=== PATIENT | female | born 1950 | race Caucasian/White ===

== ENCOUNTER 2019-08-11 16:37 | Emergency (ER) | payer OTHER, SELFPAY ==
[2019-08-11 16:40] VITALS: BP 152/91; PULSE 108; RESP 15; TEMP 36.8; O2SAT 98
--- NOTE | 2019-08-11 16:47 | ED.EXTPRO ---
HPI - Extremity Problem General Chief complaint: Extremity Problem,Nontraumatic Stated complaint: thinks blood clot of left leg Time Seen by Provider: 08/11/19 16:42 Source: patient Mode of arrival: Ambulatory Limitations: no limitations History of Present Illness HPI Narrative: Patient 61-year-old female who presents with a red area on her left lower leg. She has also noticed some swelling there as well for the last 2-3 days. She is quite active and has had no recent travel. She denies any calf pain or shortness of breath. She does have a history of tachycardia and she has been she was 14 or 15 she says she deals with it. 4 days ago she felt her tachycardia on its non a little only. She is worried about a blood clot in her leg. She has not had any wrist full no prior history of blood clots. She has felt a little weak and fatigued over the last few days. She also thinks that maybe a couple weeks ago she had a UTI but denies any painful or frequent urination at this time. Related Data Previous Rx's Medication Instructions Recorded cephalexin [Keflex] 500 mg PO TID #21 cap 08/11/19 Allergies Allergy/AdvReac Type Severity Reaction Status Date / Time aspirin Allergy Verified 08/11/19 16:46 verapamil Allergy Verified 08/11/19 16:46 Review of Systems Review of Systems Narrative: GENERAL: Denies chills, fatigue, malaise, fever, sweats, travel HEENT: Denies sinus pain, ear pain, sore throat, difficulty swallowing, neck pain RESPIRATORY: Denies dyspnea, cough, wheezing, hemoptysis, sputum. CARDIOVASCULAR: Denies chest pain, palpitations, orthopnea, edema GASTROINTESTINAL: Denies nausea, vomiting, abdominal pain, diarrhea, constipation, melena. : Denies dysuria, frequency, incontinence, hematuria, urinary retention, flank pain. MUSCULOSKELETAL: Denies weakness, joint pain, or bony pain SKIN: See HPI NEUROLOGIC: Denies weakness, dizziness, headache, numbness, change in speech, confusion PSYCHIATRIC: No concerning psychosocial issues. 12 point review of systems is negative except for those stated above and HPI Patient History Medical History Tachycardia (Acute) Social History Smoking Status: Unknown if ever smoked Exam Initial Vital Signs Initial Vital Signs: Vital Signs Temperature 98.2 F 08/11/19 16:40 Pulse Rate 108 H 08/11/19 16:40 Respiratory Rate 15 08/11/19 16:40 Blood Pressure 152/91 H 08/11/19 16:40 Pulse Oximetry 98 08/11/19 16:40 GENERAL: Well-appearing, well-nourished and in no acute distress. HEENT: Head atraumatic,EOMI, pupils reactive CARDIOVASCULAR: Regular rate and rhythm without murmurs, rubs or gallops. RESPIRATORY: Breath sounds equal bilaterally, no wheezes rales or rhonchi. ABDOMEN: Soft, nontender. Normoactive bowel sounds all 4 quadrants. No guarding or rebound. EXTREMITIES: Normal range of motion, no clubbing or edema. Neurovascularly intact. No calf pain no swelling no tenderness NEUROLOGICAL: Alert and oriented x4.Normal gait and speech. SKIN: Left medial ankle area 4.5 cm x 2 cm area of erythema that is blanchable non streaking no fluctuation Scores Wells' Criteria for DVT Active Cancer (Treatment within 6 months): No Bedridden recently >3 days or major surgery within 4 weeks: No Calf Swelling >3cm compared to other leg: No Collateral (nonvericose) superficial veins present: No Entire leg swollen: No Localized tenderness along the deep vein system: No Pitting edema, confined to symtomatic leg: No Paralysis, paresis, or recent plaster immobilization of ext: No Previously documented DVT: No Alternative dx to DVT as likely or more likely: No Wells' criteria for DVT: 0 Course Orders Ordered: ED Orders 08/11/19 17:18 Urinalysis and Microscopic Stat Urine Culture Stat Vital Signs Vital signs: Vital Signs - 8 hr 08/11/19 16:40 08/11/19 17:42 Temperature 98.2 F Pulse Rate 108 H 87 Respiratory Rate 15 16 Blood Pressure 152/91 H Blood Pressure [Left Arm] 134/78 Pulse Oximetry 98 99 MDM - Extremity (Nontraumatic) Lab Data Attestation: I reviewed the patient's lab results. Labs: Lab Results 08/11/19 Range/Units 17:18 Urine Color [place] Urine Appearance Slightly cloudy Urine pH 5.0 (4.5-8.0) Ur Specific [place] 1.020 (1.000-1.035) Urine Protein 2+ H (Negative) Urine Glucose (UA) Negative (Negative) g/dL Urine Ketones Negative (NEGATIVE) Urine Occult Blood 3+ H (Negative) Urine Nitrate Negative (Negative) Urine Bilirubin Negative (NEGATIVE) Urine Urobilinogen 0.2 (0.2) E.U./dL Ur Leukocyte Esterase 2+ H (NEGATIVE) Urine RBC 5-10/hpf H (0-5/HPF) Urine WBC 10-30/hpf H (0-5/HPF) Ur Squamous Epith Cells 5-10 /hpf H (0-5/HPF) Urine Bacteria Moderate (10-30) H (None) Urine Mucus 1+ H (Negative) Ur Culture Indicated? Specimen cultured MDM Narrative Medical decision making narrative: Patient's signs and symptoms are more consistent with cellulitis. She is low risk for DVT. At this time rectal and treatment with antibiotics and close monitoring. She is noted to be tachycardic in the ED by has a history of tachycardia which she mention frequently to me. Her heart rate actually improved without any intervention. She does also appear to have a UTI. She does not appear septic she has of small amount of erythema on her leg at this time I do not believe there to be any need for any further testing or workup. Although I did discuss possibility of blood work with both patient and at this time they declined. I discussed all findings with the patient and , Education has been performed regarding treatment plan, diagnosis, warning signs and symptoms and all concerns have been addressed. Verbally agree with and understood all of the above. Discharge Plan Departure Patient Disposition: Home Clinical Impression: Acute UTI Cellulitis Qualifiers: Site of cellulitis: extremity Site of cellulitis of extremity: lower extremity Laterality: left Qualified Code(s): L03.116 - Cellulitis of left lower limb Discharge Date/Time: 08/11/19 18:05 Activity Restrictions/Additional Instructions: *You have been diagnosed with left leg cellulitis *What to do: Monitor redness 8 May get slightly worse over the next 1-2 days and then it should start to improve *Continue to take medications as directed Keflex 500 mg 3 times a day for 7 days *Follow up with your primary care provider in 2-3 days *Return to ER if you should have increasing redness, fever, chills, increased calf pain or swelling or any new, worsening or concerning symptoms Prescriptions: New cephalexin [Keflex] 500 mg capsule 500 mg PO TID Qty: 21 RF: 0 Referrals: [facility] [Outside]
[2019-08-11 17:37] LABS: Bilirubin Urine UA NEGATIVE (NEGATIVE); Glucose Urine UA NEGATIVE (Negative); Ketones Urine UA NEGATIVE (NEGATIVE); Leukocyte Esterase Urine UA 2+ (NEGATIVE); Nitrite Urine UA NEGATIVE (Negative); Occult Blood Urine UA 3+ (Negative); Protein Urine UA 2+ (Negative); Urobilinogen Urine UA 0.2 E.U./dL (0.2)
[2019-08-11 17:42] VITALS: BP 134/78; PULSE 87; RESP 16; O2SAT 99
[2019-08-11 17:46] LABS: Appearance Urine UA Slightly Cloudy; Bacteria Urine Moderate (10-30); Color Urine UA Amber; RBC Urine 5-10/HPF (0-5/HPF); Squamous Epithelial Cell Urine 5-10 /HPF (0-5/HPF); WBC Urine 10-30/HPF (0-5/HPF)
[2019-08-11 17:47] LABS: Culture Indicated Urine Specimen Cultured; Mucus Urine 1+ (Negative)
== END 2019-08-11 18:05 | disposition home or self-care (01) ==
PROVIDERS: Emergency Provider Emergency Medicine
DX: N39.0 Urinary tract infection, site not specified (principal); L03.116 Cellulitis of left lower limb; R00.0 Tachycardia, unspecified
CPT/HCPCS: 36415; 81001; 87077; 87086; 87186; 99282

== ENCOUNTER 2019-09-24 15:06 | Emergency (ER) | payer OTHER, SELFPAY ==
[2019-09-24 15:15] VITALS: BP 160/95; PULSE 108; RESP 22; TEMP 36.7; O2SAT 95
--- NOTE | 2019-09-24 16:02 | ED.ABDPAIN ---
HPI - Abdominal Pain <Enriqueta Lira DO - Last Filed: 09/25/19 09:30> General Chief Complaint: Abdominal Pain Stated Complaint: BLEEDING IN BAGS ON BLOOD THINNERS Time Seen by Provider: 09/24/19 15:19 Source: patient Mode of arrival: Ambulatory Limitations: no limitations History of Present Illness HPI narrative: Patient is a 69-year-old female with history of PE, DVT, liver mass, she had biliary stent placement by Interventional Radiology at [facility] 08/25/2019. Today she presents blood draining from 1 of her drains. It was not previously there. She also has had significant leakage around her bandages and thinks that 1 of the catheters is coming out. She denies any worsening abdominal pain. She denies any dizziness or lightheadedness. She is currently on Lovenox twice a day for her PE and DVT. Related Data Allergies Allergy/AdvReac Type Severity Reaction Status Date / Time aspirin Allergy Verified 08/11/19 16:46 verapamil Allergy Verified 08/11/19 16:46 Review of Systems <Enriqueta Lira DO - Last Filed: 09/25/19 09:30> Review of Systems Narrative: GENERAL: Denies chills, fatigue, malaise, fever, sweats, travel HEENT: Denies sinus pain, ear pain, sore throat, difficulty swallowing, neck pain RESPIRATORY: Denies dyspnea, cough, wheezing, hemoptysis, sputum. CARDIOVASCULAR: Denies chest pain, palpitations, orthopnea, edema GASTROINTESTINAL: See HPI : Denies dysuria, frequency, incontinence, hematuria, urinary retention, flank pain. MUSCULOSKELETAL: Denies weakness, joint pain, or bony pain SKIN: No rash, no erythema, no pruritus NEUROLOGIC: Denies weakness, dizziness, headache, numbness, change in speech, confusion PSYCHIATRIC: No concerning psychosocial issues. 12 point review of systems is negative except for those stated above and HPI Patient History <Enriqueta Lira DO - Last Filed: 09/25/19 09:30> Medical History DVT (deep venous thrombosis) (Acute) Liver mass (Acute) Pulmonary embolism (Acute) Tachycardia (Acute) Social History Smoking Status: Never smoker Smoking Status: Never smoker alcohol intake frequency: 0-2 drinks per day Substance Use Type: does not use Exam <Enriqueta Lira DO - Last Filed: 09/25/19 09:30> Initial Vital Signs Initial Vital Signs: Vital Signs Temperature 98.0 F 09/24/19 15:15 Pulse Rate 108 H 09/24/19 15:15 Respiratory Rate 22 09/24/19 15:15 Blood Pressure 160/95 H 09/24/19 15:15 Pulse Oximetry 95 09/24/19 15:15 GENERAL: Well-appearing, well-nourished and in no acute distress. HEENT: Head atraumatic,EOMI, pupils reactive, face symmetric, CARDIOVASCULAR: Regular rate and rhythm without murmurs, rubs or gallops. RESPIRATORY: Breath sounds equal bilaterally, no wheezes rales or rhonchi. ABDOMEN: Soft, nontender. Normoactive bowel sounds all 4 quadrants. No guarding or rebound. 2 drains placed in with right upper quadrant. L1 does have gross blood in it with saturated bandages. Minimally tender around sites skin overall appears well is a noninfected. EXTREMITIES: Normal range of motion, no clubbing or edema. Neurovascularly intact NEUROLOGICAL: Alert and oriented x4.Normal gait and speech. Cranial nerves II through XII grossly intact. SKIN: Warm, dry, no laceration, no petechiae, no rashes or lesions. <Marcin Reynoso MD - Last Filed: 09/24/19 23:33> Initial Vital Signs Initial Vital Signs: Vital Signs Temperature 98.0 F 09/24/19 15:15 Pulse Rate 108 H 09/24/19 15:15 Respiratory Rate 22 09/24/19 15:15 Blood Pressure 160/95 H 09/24/19 15:15 Pulse Oximetry 95 09/24/19 15:15 Course <Enriqueta Lira DO - Last Filed: 09/25/19 09:30> Orders Ordered: Discontinued Medications Sodium Chloride (Normal Saline 0.9%) 1,000 mls @ 150 mls/hr IV CONT HA Last Infusion: 09/24/19 20:42 Dose: 0 mls/hr Documented by: JOSE MANUEL Admin: 09/24/19 18:25 Dose: 150 mls/hr Documented by: JOSE MANUEL Consultations Consultation #1: Dr. Sabillon, hospitalist at [facility] has been updated patient's symptoms test results. Concern for drain in the vein. I have faxed her report of the CT scan. May need surgery. Time: 18:49 Vital Signs Vital signs: Vital Signs - 8 hr 09/24/19 15:15 09/24/19 18:24 Temperature 98.0 F Pulse Rate 108 H 89 Respiratory Rate 22 17 Blood Pressure 160/95 H Blood Pressure [Left Arm] 141/71 H Pulse Oximetry 95 98 <Marcin Reynoso MD - Last Filed: 09/24/19 23:33> Course Course Narrative: The majority of the patient's care was from my partner prior to change of shift, Dr. Lira. The patient was diagnosed with DVT and PE approximately once month ago. At that time she was also found to have liver masses. She was seen at [facility], 2 stents were placed in to her liver by invasive Radiology at [facility]. She is anticoagulated with Lovenox for the DVT and PE. She has a home locally here, but also has a home in [place], [place], near [facility]. She developed a small amount of bleeding into 1 of the tubes today, there was a small amount of bleeding into the bandage at the same time. She has had no injury, pain or edema at the site. She's had no prior bleeding. She felt a subtle chest discomfort at that time, no persistent pain or dyspnea. She has had no cough or hemoptysis. She has no significant abdominal pain, nausea, vomiting or diarrhea. She has had no fever. Evaluation by was reviewed. One of the tubes is near the jessica hepatis raised concern from our local radiologist. She is afebrile, normotensive, with normal O2 sats. H/H is stable. I reviewed the case with the patient. There is a little bit of dark blood in the tube, there is a dark, serous drainage from the wound site. She has no obvious, acute bleeding. The looked at the tubes and suggests 1 tubes may have pulled out a bit. I was able discuss the case with Dr. Decker, invasive Radiology at [facility]. There is no bright red blood, there is no suggestion of ongoing/active bleeding. The invasive radiologist also suggested that the tube may have moved, generally meaning the tube may slipped out a bit. Dr. Decker will see the patient in the morning, but tonight through the ER if symptoms exacerbate. I instructed patient that if there's any bleeding greater than the small amount of blood in the bag now she should be evaluated tonight. [place], she has an appointment with Oncology at noon tomorrow. She will be instructed to follow-up with radiology in the morning, she should be holding the Lovenox until after the radiology visit. Dr. Mercado is on-call [facility]. \ Orders Ordered: Discontinued Medications Sodium Chloride (Normal Saline 0.9%) 1,000 mls @ 150 mls/hr IV CONT HA Last Infusion: 09/24/19 20:42 Dose: 0 mls/hr Documented by: JOSE MANUEL Admin: 09/24/19 18:25 Dose: 150 mls/hr Documented by: JOSE MANUEL Vital Signs Vital signs: Vital Signs - 8 hr 09/24/19 15:15 09/24/19 18:24 Temperature 98.0 F Pulse Rate 108 H 89 Respiratory Rate 22 17 Blood Pressure 160/95 H Blood Pressure [Left Arm] 141/71 H Pulse Oximetry 95 98 MDM - Abdominal Pain <Enriqueta Lira DO - Last Filed: 09/25/19 09:30> Lab Data Attestation: I reviewed the patient's lab results. Result diagrams: 09/24/19 16:20 09/24/19 16:20 Labs: Lab Results 09/24/19 09/24/19 09/24/19 Range/Units 16:20 16:20 16:20 WBC 12.6 H (4.5-11.0) X10^3/uL RBC 3.84 L (4.0-5.2) X10^6/uL Hgb 11.1 L (12.0-16.0) g/dL Hct 33.3 L (36-46) % MCV 86.7 (80-100) fL MCH 28.9 (26-34) PG MCHC 33.3 (30-36) % RDW 15.8 H (11.6-14.8) % Plt Count 540 H (150-400) X10^3/uL Neut % (Auto) 84.7 H (50-75) % Lymph % (Auto) 6.9 L (25-40) % [place] % (Auto) 6.4 (3-14) % Eos % (Auto) 1.5 L (2-4) % Baso % (Auto) 0.5 (0-2) % Neut # (Auto) 81217 H (2174-5546) /uL Lymph # (Auto) 900 L (7335-0827) /uL [place] # (Auto) 800 (0-900) /uL Eos # (Auto) 200 (0-450) /uL Baso # (Auto) 100 (0-100) /uL PT 16.1 H (10.1-12.7) SECONDS INR 1.4 H (0.9-1.3) APTT 33 (26.4-36.2) SECONDS Sodium 136 L (137-145) mmol/L Potassium 3.2 L (3.4-5.1) mmol/L Chloride 95 L (98-107) mmol/L Carbon Dioxide 31 (22-32) mmol/L BUN 19 H (7-17) mg/dL Creatinine 0.50 L (0.52-1.04) mg/dL Estimated GFR > 60.0 (>60) mL/min BUN/Creatinine Ratio 38.0 H (6-22) Glucose 114 H (80-110) mg/dL Calcium 9.5 (8.4-10.2) mg/dL Total Bilirubin 8.9 H (0.2-1.3) mg/dL AST 71 H (14-36) IU/L ALT 77 H (<35) IU/L Alkaline Phosphatase 171 H (38-126) U/L Total Protein 8.2 (6.3-8.2) g/dL Albumin 4.1 (3.5-5.0) g/dL Globulin 4.1 (1.7-4.1) g/dL Albumin/Globulin Ratio 1.0 (1.0-2.8) Lipase 126 (23-300) U/L Imaging Data CT scan - abdomen/pelvis: Radiologist's Impression: PROCEDURE: CT ABDOMEN PELVIS W CON INDICATIONS: liver mass with drains now bleeding TECHNIQUE: After the administration of intravenous contrast, 5 mm thick sections acquired from the diaphragm to the symphysis. 5 mm coronal and sagittal reformats were acquired. For radiation dose reduction, the following was used: automated exposure control, adjustment of mA and/or kV according to patient size. COMPARISON: None. FINDINGS: Image quality: Excellent. ABDOMEN: Lung bases: Mild dependent atelectasis. Mild nodular opacity at the left cardiophrenic angle. Question of 2 mm pulmonary nodule at the left lung base. Question of metastasis. A subsegmental pulmonary embolus at the left lower lobe, (2/2). No pleural effusion. Heart size is normal. Solid organs: Percutaneous transhepatic biliary drain with the tip terminating in the third portion of the duodenum. Additional inferior transhepatic drain with the tip near the hepatic hilum. Large ill-defined hypodense region in the central portion of the liver. The transhepatic biliary drainage transverses this region. Multiple scattered hypodense hepatic lesions. For example: -Segment 2 left lobe hypodense lesion measuring 1.8 x 1.8 cm (2/20). -Segment 6 inferior right lobe hypodense lesion measuring 1.3 x 1.3 cm, (2/51). Gallbladder is not significantly distended. However, there is moderate likely cystic fluid and calcified stones within the gallbladder. Moderate intrahepatic ductal dilatation in the left lobe measuring up to 9 mm (2/27). No pneumobilia. There is moderate periportal edema. The right portal vein is somewhat attenuated. No portal vein thrombosis is identified. SMV is patent. Pancreas enhances normally. Spleen is normal in size and enhancement. No adrenal nodules. Kidneys demonstrate normal size and enhancement, without hydronephrosis. Peritoneum and bowel: No small bowel obstruction identified. There is mild prominence of loops of small bowel in the pelvis. There is increased conspicuity of the small bowel wall. There is trace free fluid. No pneumoperitoneum. Nodes and vessels: No retroperitoneal or mesenteric adenopathy by size criteria. Aorta and inferior vena cava are normal in size. Miscellaneous: No ventral hernias. Abdominal wall injection granuloma is and trace gas. No fluid collection. PELVIS: Genitourinary: Bladder wall thickness is normal. Fibroid uterus. Small volume of free fluid in the pelvis. Miscellaneous: No inguinal hernias or adenopathy. Bones: No suspicious bony lesions. No vertebral body compression fractures. IMPRESSION: 1. Multifocal hypodense hepatic lesions. Most suspicious for metastases. 2. Transhepatic biliary stent with the tip terminating in the third portion of the duodenum. There is moderate biliary dilatation in the left lobe liver. 3. Transhepatic drainage catheter with the tip remaining near the jessica hepatis. This may be the source of bleeding within the bandages. There is moderate periportal edema. 4. Moderate pericholecystic fluid. Cholelithiasis. 5. Subsegmental pulmonary embolus and the left lower lobe is identified. 6. Mildly prominent loops of small bowel in the lower abdomen. No transition point to suggest obstruction identified. Trace free fluid in the pelvis. Comment: Findings were discussed with Enriqueta Lira at the time of dictation. Dictated by: Erik Yen M.D. on 09/24/2019 at 17:14 Approved by: Erik Yen M.D. on 09/24/2019 at 17:35 MDM Narrative Medical decision making narrative: Patient initially questions if she should just leave the emergency department now and drive down to [place]. However I discussed with her that I cannot rule out any sort of life-threatening bleeding problem. And she would have to leave against medical advice put it at this time she agrees to stay and have workup. The patient is overall hemodynamically stable. Possible inferior drain is in she has the portal vein. Radiology states that they're supposed to see a vein there but they no longer see it. No significant internal bleeding noted from this. I've called and spoken with hospitalist at [place]. Patient is signed out to Dr. Reynoso for further evaluation and management. <Marcin Reynoso MD - Last Filed: 09/24/19 23:33> Lab Data Labs: Lab Results 09/24/19 09/24/19 09/24/19 Range/Units 16:20 16:20 16:20 WBC 12.6 H (4.5-11.0) X10^3/uL RBC 3.84 L (4.0-5.2) X10^6/uL Hgb 11.1 L (12.0-16.0) g/dL Hct 33.3 L (36-46) % MCV 86.7 (80-100) fL MCH 28.9 (26-34) PG MCHC 33.3 (30-36) % RDW 15.8 H (11.6-14.8) % Plt Count 540 H (150-400) X10^3/uL Neut % (Auto) 84.7 H (50-75) % Lymph % (Auto) 6.9 L (25-40) % [place] % (Auto) 6.4 (3-14) % Eos % (Auto) 1.5 L (2-4) % Baso % (Auto) 0.5 (0-2) % Neut # (Auto) 02131 H (8683-6861) /uL Lymph # (Auto) 900 L (8674-4710) /uL [place] # (Auto) 800 (0-900) /uL Eos # (Auto) 200 (0-450) /uL Baso # (Auto) 100 (0-100) /uL PT 16.1 H (10.1-12.7) SECONDS INR 1.4 H (0.9-1.3) APTT 33 (26.4-36.2) SECONDS Sodium 136 L (137-145) mmol/L Potassium 3.2 L (3.4-5.1) mmol/L Chloride 95 L (98-107) mmol/L Carbon Dioxide 31 (22-32) mmol/L BUN 19 H (7-17) mg/dL Creatinine 0.50 L (0.52-1.04) mg/dL Estimated GFR > 60.0 (>60) mL/min BUN/Creatinine Ratio 38.0 H (6-22) Glucose 114 H (80-110) mg/dL Calcium 9.5 (8.4-10.2) mg/dL Total Bilirubin 8.9 H (0.2-1.3) mg/dL AST 71 H (14-36) IU/L ALT 77 H (<35) IU/L Alkaline Phosphatase 171 H (38-126) U/L Total Protein 8.2 (6.3-8.2) g/dL Albumin 4.1 (3.5-5.0) g/dL Globulin 4.1 (1.7-4.1) g/dL Albumin/Globulin Ratio 1.0 (1.0-2.8) Lipase 126 (23-300) U/L Discharge Plan Departure Patient Disposition: Home Clinical Impression: Cancer, metastatic to liver, Chronic anticoagulation Pulmonary embolism Qualifiers: Pulmonary embolism type: unspecified Chronicity: chronic Acute cor pulmonale presence: without acute cor pulmonale Qualified Code(s): I27.82 - Chronic pulmonary embolism Post-op bleeding Qualifiers: Surgical complication system/body Area: digestive system Procedure type: digestive system Qualified Code(s): K91.840 - Postprocedural hemorrhage of a digestive system organ or structure following a digestive system procedure Discharge Date/Time: 09/24/19 20:42 Activity Restrictions/Additional Instructions: I talked to Dr. Decker with the radiology department at [facility]. He is familiar with you and your clinical history. It is likely that the stent may have slipped, creating a source for bleeding. You should check in to the Radiology Department [facility] tomorrow morning, he will see her there. There still is a little bit of dark blood seeping from her wound. If her situation remains unchanged, you should be okay to see him tomorrow morning. If you experience a significant increase in bleeding, go to the ER there tonight, he will see you tonight. You're taking Lovenox with PE and DVT. Do not take Lovenox tonight or in the morning, in preparation for a possible procedure to adjust the drains to your liver tomorrow. If you developed significant chest pain or problems breathing, you should also go to an ER due to that issue. And follow-up with your oncologist tomorrow as planned. Return to this ER any time necessary.
[2019-09-24 16:32] LABS: Add Manual Diff / Slide Review NO; Basophils Absolute Auto 100 /uL (0-100); Basophils Percent Auto 0.5 % (0-2); Eosinophils Absolute Auto 200 /uL (0-450); Eosinophils Percent Auto 1.5 % (2-4); Hematocrit 33.3 % (36-46); Hemoglobin 11.1 g/dL (12.0-16.0); Lymphocytes Absolute Auto 900 /uL (1100-4500); Lymphocytes Percent Auto 6.9 % (25-40); Mean Corpuscular HGB Conc 33.3 % (30-36); Mean Corpuscular Hemoglobin 28.9 PG (26-34); Mean Corpuscular Volume 86.7 fL (80-100); Monocytes Absolute Auto 800 /uL (0-900); Monocytes Percent Auto 6.4 % (3-14); Neutrophils Absolute Auto 10600 /uL (1500-7000); Neutrophils Percent Auto 84.7 % (50-75); Platelet Count 540 X10^3/uL (150-400); Red Blood Cell Count 3.84 X10^6/uL (4.0-5.2); Red Cell Distribution Width 15.8 % (11.6-14.8); White Blood Cell Count 12.6 X10^3/uL (4.5-11.0)
[2019-09-24 16:39] LABS: INR 1.4 (0.9-1.3); Prothrombin Time 16.1 SECONDS (10.1-12.7)
[2019-09-24 16:42] LABS: PTT Partial Thromboplastin Tim 33 SECONDS (26.4-36.2)
[2019-09-24 16:43] LABS: Alanine Aminotransferase 77 IU/L (<35); Albumin 4.1 g/dL (3.5-5.0); Alkaline Phosphatase 171 U/L (38-126); Aspartate Aminotransferase 71 IU/L (14-36); Bilirubin Total 8.9 mg/dL (0.2-1.3); Blood Urea Nitrogen 19 mg/dL (7-17); Calcium 9.5 mg/dL (8.4-10.2); Carbon Dioxide 31 mmol/L (22-32); Chloride 95 mmol/L (98-107); Estimated Glomerular Filt Rate > 60.0 mL/min (>60); Globulin 4.1 g/dL (1.7-4.1); Glucose 114 mg/dL (80-110); HEMOLYSIS < 15 (0-50); Lipase 126 U/L (23-300); Potassium 3.2 mmol/L (3.4-5.1); Sodium 136 mmol/L (137-145); Total Protein 8.2 g/dL (6.3-8.2)
[2019-09-24 18:24] VITALS: BP 141/71; PULSE 89; RESP 17; O2SAT 98
[2019-09-24] MEDS: SODIUM CHLORIDE 0.9% 1,000 ML 150 ML IV (18:25)
== END 2019-09-24 20:42 | disposition home or self-care (01) ==
PROVIDERS: Emergency Medicine; Emergency Provider Emergency Medicine
DX: C78.7 Secondary malignant neoplasm of liver and intrahepatic bile duct (principal); Z79.01 Long term (current) use of anticoagulants; I27.82 Chronic pulmonary embolism; K91.840 Postprocedural hemorrhage of a digestive system organ or structure following a digestive system procedure
CPT/HCPCS: 74177; 80053; 83690; 85025; 85610; 85730; 96360; 96361; 99283; 99284; Q9967